=== PATIENT | female | born 1955 | race Caucasian/White ===

== ENCOUNTER 2016-12-10 14:04 | Emergency (ER) | payer OTHER, MEDICARE ==
[~2016-12-10] VITALS: Ht 160 cm; Wt 54.9 kg
[~2016-12-10 14:04] MED LIST: ALPRAZOLAM1 MG PO; ALPRAZOLAM2 M1 PO; ATENOLOL50 MG PO; FUROSEMIDE20 MG PO; LEVAQUIN500 MG PO; LEVOTHYROXINE100 MC1 PO; MORPHINE SULFA100 MG PO; MOTRIN 600 MG600 MG PO; NORVASC 5MG TAB5 MG PO; OMEPRAZOLE40 MG PO; OXYCODONE HCL15 MG PO; PEN-VK500 MG PO; SODIUM CHLORIDE1 GM PO; ZOFRAN 4 MG TABL4 MG PO
--- NOTE | 2016-12-10 14:48 | ED GI/GU/ABDOMINAL COMPLAINT ---
History of Present Illness General Chief Complaint: Abdominal Pain/Flank Pain Stated Complaint: FLANK PAIN Source: patient, family, old records Exam Limitations: no limitations Vital Signs & Intake/Output Vital Signs & Intake/Output Vital Signs Date Time Temp Pulse Resp B/P Pulse O2 O2 Flow FiO2 Ox Delivery Rate 12/10 1634 98.0 88 16 120/72 98 Room Air 12/10 1420 98.7 99 18 113/72 96 Room Air Room Air Allergies Coded Allergies: amoxicillin (From AUGMENTIN) (VOMITING 12/10/16) cephalexin (From KEFLEX) (VOMITING 12/10/16) clavulanic acid (From AUGMENTIN) (VOMITING 12/10/16) poison reina extract (RASH HIVES 12/10/16) Uncoded Allergies: ANTIBIOTICS (PT STATES ONLY CAN TAKE PCN, AMOX AND LEVOFLOXACIN 06/24/15) HAIR DYE (HEAD SWELL, CELLULITIS, EYES SWELLED SHUT 06/24/15) Reconcile Medications Alprazolam (Alprazolam ER) 2 MG TAB.ER.24H 1 TAB PO QPM SLEEP (Reported) Amlodipine (Norvasc 5MG Tab) 5 MG TABLET 1 TAB PO DAILY BP (Reported) Atenolol 50 MG TABLET 1 TAB PO DAILY BP (Reported) Cyclobenzaprine HCl 5 MG TABLET 1 TAB PO TIDPRN PRN PAIN Furosemide 20 MG TABLET 1 TAB PO DAILY DIURETIC (Reported) Levothyroxine Sodium 100 MCG TABLET 1 TAB PO DAILY AC THYROID (Reported) Morphine Sulfate (Morphine Sulfate ER) 100 MG TABLET.ER 1 TAB PO BID PRN PAIN (Reported) Omeprazole 40 MG CAPSULE.DR 1 CAP PO DAILY GI (Reported) Ondansetron HCl 4 MG TABLET 1 TAB PO BID PRN NAUSEA/VOMITING (Reported) OXYCODONE HCL (Oxycodone HCl) 15 MG TABLET 1 TAB PO Q4H PRN PAIN (Reported) Sodium Chloride 1 GRAM TABLET 2 GM PO BID SEIZURES (Reported) Triamcinolone Acetonide 0.1 % OINT...G. 1 MICHOACANO TOP BID DERMATITIS apply to affected area(s) Triage Note: TRIAGE: 61 Y/O FEMALE PRESENTS C/O 8/10 BILATERAL FLANK PAIN X 2 WEEKS, INCREASING YESTERDAY. "I HAVE A RED BURNING RASH ON THE BOTTOM OF MY FEET." REPORTS URINARY BURNING. ABLE TO PROVIDE URINE SPECIMEN IN TRIAGE. Triage Nurses Notes Reviewed? yes ? n Is pt currently ? No Onset: Abrupt Duration: day(s): (1), constant Timing: recent history Quality/Severity: aching, moderate Severity Numbers: 7 Location: left flank, right flank Radiation: no radiation Activities at Onset: cleaning house Modifying Factors: Worsens With: movement. Associated Symptoms: denies HPI: 61-year-old female with history of chronic back pain secondary to scoliosis shoulder pain on multiple narcotic pain medications and pain management presents complaining of bilateral back pain since last night which states came on after she was cleaning the house. Pain is worse with palpation and change in position better at rest. She also reports that her urine was brown in color last night however was clear today. She denies any urinary symptoms. She denies any abdominal pain nausea vomiting diarrhea no cough no shortness of breath. She denies any numbness or tingling in her legs no arm or leg pain. There's been no recent fall or injury or trauma. She's been taking her pain medication as prescribed with minimal improvement in her symptoms. Is also complaining of a burning red rash to the plantar surface of both of her feet since yesterday. According to the patient's the patient was cleaning the carpet with cleaning chemicals and believes that that irritated her feet. She denies any other rash anywhere else. No history of allergic reactions or similar rashes in the past. She denies pruritus and states that it is just burning and has not increased in size since it began yesterday. There are no other modifying factors or associated symptoms otherwise. (EMILY THAPA) Past History Travel History Traveled to [place] past 21 day No Medical History Any Pertinent Medical History? see below for history Neurological: NONE EENT: NONE Cardiovascular: hypertension Respiratory: NONE Gastrointestinal: NONE Hepatic: NONE Renal: NONE Musculoskeletal: chronic back pain, scoliosis Psychiatric: anxiety Blood Disorders: HEP C Surgical History Surgical History: non-contributory Psychosocial History What is your primary language Chinese Tobacco Use: Never used ETOH Use: denies use Illicit Drug Use: denies illicit drug use Family History Hx Contributory? No (EMILY THAPA) Review of Systems Review of Systems Constitutional: Reports: see HPI. All Other Systems: Reviewed and Negative Comments Review of systems: See HPI, All other systems negative. Constitutional, no chills no fever, no malaise no weight loss HEENT: No visual changes no sore throat no congestion Cardiovascular: No chest pain , no palpitation Skin, no rashes, no change in skin Respiratory: No dyspnea no cough no sputum GI: No nausea no vomiting, no diarrhea, : No dysuria No hematuria, no frequency, no discharge Muscle skeletal: No joint pain, no joint swelling, back pain, no neck pain, Neurologic: No numbnessno headache Psych: No stress Heme/endocrine: No bruising no bleeding Immunology: No lymphadenopathy (EMILY THAPA) Physical Exam Physical Exam General Appearance: well developed/nourished, alert, awake, comfortable Gastrointestinal: normal bowel sounds, soft, non-tender Comments: Well-developed well-nourished person in no acute distress HEENT: Normal EENT exam; PERRL, EOMI, HEAD is atraumatic. moist mucous membranes. Neck: Supple, normal range of motion without pain or tenderness Back: Bilateral paralumbar muscle tenderness. Patient no CVA tenderness. Full range of motion Cardiovascular: Regular rate and rhythms no murmurs rubs Respiratory: No respiratory distress. Patient speaking in full complete sentences. Breath sounds clear to auscultation bilaterally: NO W/R/R Abdomen: Soft, nontender nondistended, no appreciable organomegaly. Normal bowel sounds. No rebound/guarding Extremity: No edema, full range of motion of extremities, normal and equal pulses bilaterally, 5 out of 5 strength noted to bilateral upper and lower extremities Neuro: Alert oriented x3, motor sensory normal, cranial nerves II through XII grossly intact. There were no obvious focal neurologic abnormalities. Skin: There is an erythematous rash noted to the plantar surface of bilateral feet, there is no scaling no blisters no bulla noted nontender, skin is warm and dry. Psych: Mood and affect is normal, memory and judgment is normal. Core Measures ACS in differential dx? No Severe Sepsis Present: No Septic Shock Present: No (EMILY THAPA) Progress Differential Diagnosis: bowel obstruction, diverticulitis, inflamm bowel dis, kidney stone, peptic ulcer, PUD/GERD, UTI/pyelo, musculoskeletal strain, malignancy Plan of Care: Orders Procedure Date/time Status URINALYSIS 12/10 141 Complete LACTIC ACID 12/10 141 Complete COMPREHENSIVE METABOLIC PANEL 12/10 1416 Complete CBC WITHOUT DIFFERENTIAL 12/10 1416 Complete Laboratory Tests 12/10/16 1717: Lactic Acid Cancelled 12/10/16 1524: Anion Gap 10, Estimated GFR > 60, BUN/Creatinine Ratio 11.7, Glucose 93, Lactic Acid 1.3, Calcium 8.7, Total Bilirubin 1.0, AST 198 H, ALT 122 H, Alkaline Phosphatase 96, Total Protein 7.3, Albumin 3.6, Globulin 3.7, Albumin/Globulin Ratio 1.0 L, CBC w Diff NO MAN DIFF REQ, RBC 3.19 L, MCV 91.7, MCH 31.4 H, RDW 13.3, MPV 7.9, Gran % 55.9, Lymphocytes % 29.7, Monocytes % 7.3, Eosinophils % 6.6 H, Basophils % 0.5, Absolute Granulocytes 2.9, Absolute Lymphocytes 1.5, Absolute Monocytes 0.4, Absolute Eosinophils 0.3, Absolute Basophils 0, PUBS MCHC 34.3 12/10/16 1423: Urine Color YEL, Urine Clarity CLEAR, Urine pH 6.0, Ur Specific [place] <= 1.005 , Urine Protein NEG, Urine Ketones NEG, Urine Nitrite NEG, Urine Bilirubin NEG, Urine Urobilinogen 0.2, Ur Leukocyte Esterase NEG, Ur Microscopic EXAM NOT REQUIRED, Urine Hemoglobin NEG, Urine Glucose NEG Labs ordered old records reviewed patient medicated Flexeril 10 mg by mouth x- rays ordered Old records reviewed show the patient's H&H and sodium is at her baseline dating back to 2009 I discussed the patient at length her x-ray results she feels improved with the Flexeril. The patient has a known history of hyponatremia dating back ranging anywhere from 126-137. Discussed thoroughly all the rest of her lab results were elevated liver tests. Patient will have close follow up with pain management as her primary care physician if symptoms persist given symptoms improve with Flexeril reproducible with palpation discussed with her that most likely believe symptoms are attributed to her cleaning do not believe she requires any other further imaging at this time which she is in agreement with that will return anytime sooner with any concerns (KRISTY ARRIETA,EMILY) Diagnostic Imaging: Viewed by Me: Radiology Read. Discussed w/RAD: Radiology Read. Radiology Impression: PATIENT: DK DEWITT PRESENT AGE: 61 PATIENT ACCOUNT NO: [id number] : 53 LOCATION: [facility] ORDERING PHYSICIAN: EMILY ARRIETA SERVICE DATE: 12/10/16-1518 EXAM TYPE: RAD - XRY-THORACOLUMBAR SPINE EXAMINATION: XR THORACOLUMBAR SPINE CLINICAL INFORMATION: Back pain. No known injury. COMPARISON: Lumbar spine films dated . TECHNIQUE: Frontal and lateral views of the thoracic and lumbar spine. FINDINGS: Thoracic spine: There is a convex right thoracic scoliosis. No acute fracture or dislocation is seen. Disc space height is relatively well-maintained at all levels. Minimal vertebral spondylosis is seen in the lower thoracic spine at T11-T12 and T9-T10. Paraspinal soft tissues are normal. Calcification of the aortic arch is seen. Included portions of the lungs are unremarkable. Lumbar spine: There is a minimal convex right lumbar scoliosis. As seen previously, there is advanced degenerative disc disease at the lumbosacral junction with near complete loss of the disc space height, vacuum disc phenomenon, vertebral endplate sclerosis and spurring and associated moderate facet arthropathy seen. There is moderate degenerative disc disease seen at all remaining lumbar levels. Osteopenia suggested. Mild superior endplate compression of the L3 vertebral body is seen, unchanged. Aortoiliac vascular calcifications are seen. IMPRESSION : 1. No acute fracture of the thoracic spine or the lumbar spine. 2. Mild thoracolumbar scoliosis with mild spondylosis in lower thoracic spine and moderate to severe degenerative changes in the mid and lower lumbar spine. 3. Osteopenia with mild superior endplate compression of the L3 vertebral body, unchanged. DICTATED BY: LUCITA ONEILL MD DATE/TIME DICTATED:12/10/161605 LIBRARY PAGE:KEYSHAWN DATE/TIME TRANSCRIBED:12/10/161605 CONFIDENTIAL, DO NOT COPY WITHOUT APPROPRIATE AUTHORIZATION. <Electronically signed in Other Vendor System> SIGNED BY: LUCITA ONEILL MD 12/10/16 1618 Initial ED EKG: none (KRISTY ARRIETA,EMILY) Departure Departure Time of Disposition: 1626 Disposition: HOME OR SELF CARE Condition: Stable Clinical Impression Primary Impression: Low back strain Secondary Impressions: Dermatitis, Hyponatremia Referrals: SUZANNA PACKER APRN (PCP/Family) Additional Instructions: TRIAMCINOLONE CREAM DIRECTED. CONTINUE TAKING YOUR PAIN MEDICATION PRESCRIBED. FOLLOW UP WITH YOUR PMD ON MONDAY FOR REPEAT EVALUATION IF SYMPTOMS PERSIST. FLEXERIL DIRECTED. THESE PRESCRIPTIONS WERE SENT TO [facility]. RETURN AT ANYTIME SOONER WITH ANY CONCERNS Departure Forms: Customer Survey General Discharge Information Prescriptions: Current Visit Scripts Cyclobenzaprine HCl 1 TAB PO TIDPRN PRN PAIN #15 TAB Triamcinolone Acetonide 1 MICHOACANO TOP BID #1 TUBE apply to affected area(s) (KRISTY ARRIETA,EMILY) PA/DIRECTOR DRUG SAFETY Co-Sign Statement Statement: ED Attending supervision documentation- [X] I saw and evaluated the patient. I have also reviewed all the pertinent lab results and diagnostic results. I agree with the findings and the plan of care as documented in the PA's/DIRECTOR DRUG SAFETY's documentation. [X] I have reviewed the ED Record and agree with the PA's/DIRECTOR DRUG SAFETY's documentation. [] Additions or exceptions (if any) to the PAs/DIRECTOR DRUG SAFETY's note and plan are summarized below: [] (BELINDA PARISH,NALLELY Newman)
[2016-12-10] MEDS ORDERED: ONDANSETRON HCL4 MG PO (15:02)
[2016-12-10 15:35] LABS: ABSOLUTE BASOPHIL COUNT 0 /CUMM (0.0-0.2); ABSOLUTE EOSINOPHIL COUNT 0.3 /CUMM (0.0-0.7); ABSOLUTE GRANULOCYTE CT 2.9 /CUMM (1.4-6.5); ABSOLUTE LYMPH COUNT 1.5 /CUMM (1.2-3.4); ABSOLUTE MONOCYTE COUNT 0.4 /CUMM (0.10-0.60); BASOPHIL % 0.5 % (0.0-2.0); EOSINOPHIL % 6.6 % (0-5); GRANULOCYTE % 55.9 % (42.2-75.2); HEMATOCRIT 29.3 % (37-47); MEAN CORPUSCULAR HGB 31.4 PG (27.0-31.0); MEAN CORPUSCULAR HGB CONC 34.3 G/DL (33.0-37.0); MEAN CORPUSCULAR VOLUME 91.7 FL (81.0-99.0); MEAN PLATELET VOLUME 7.9 FL (7.4-10.4); PLATELET COUNT 123 /CUMM (130-400); RBC DISTRIBUTION WIDTH 13.3 % (11.5-14.5); RED BLOOD CELL CT 3.19 /CUMM (4.20-5.40); WHITE BLOOD CELL COUNT 5.2 /CUMM (4.8-10.8)
--- NOTE | 2016-12-10 16:18 | RADIOLOGY REPORT ---
EXAMINATION: XR THORACOLUMBAR SPINE CLINICAL INFORMATION: Back pain. No known injury. COMPARISON: Lumbar spine films dated 10/20/2016. TECHNIQUE: Frontal and lateral views of the thoracic and lumbar spine. FINDINGS: Thoracic spine: There is a convex right thoracic scoliosis. No acute fracture or dislocation is seen. Disc space height is relatively well-maintained at all levels. Minimal vertebral spondylosis is seen in the lower thoracic spine at T11-T12 and T9-T10. Paraspinal soft tissues are normal. Calcification of the aortic arch is seen. Included portions of the lungs are unremarkable. Lumbar spine: There is a minimal convex right lumbar scoliosis. As seen previously, there is advanced degenerative disc disease at the lumbosacral junction with near complete loss of the disc space height, vacuum disc phenomenon, vertebral endplate sclerosis and spurring and associated moderate facet arthropathy seen. There is moderate degenerative disc disease seen at all remaining lumbar levels. Osteopenia suggested. Mild superior endplate compression of the L3 vertebral body is seen, unchanged. Aortoiliac vascular calcifications are seen. IMPRESSION: 1. No acute fracture of the thoracic spine or the lumbar spine. 2. Mild thoracolumbar scoliosis with mild spondylosis in lower thoracic spine and moderate to severe degenerative changes in the mid and lower lumbar spine. 3. Osteopenia with mild superior endplate compression of the L3 vertebral body, unchanged.
[2016-12-10] MEDS ORDERED: CYCLOBENZAPRINE5 M2 PO (16:29)
[2016-12-10] MEDS ORDERED: TRIAMCINOLONE A15 G3 TOP (16:29)
[2016-12-10 16:34] VITALS: BP 120/72
== END 2016-12-10 16:35 ==
LOC: ERH 14:04
PROVIDERS: Emergency Medicine
DX: S39.012A Strain of muscle, fascia and tendon of lower back, initial encounter (principal); L30.9 Dermatitis, unspecified; E87.1 Hypo-osmolality and hyponatremia; X58.XXXA Exposure to other specified factors, initial encounter
CPT/HCPCS: 72080; 81003

== ENCOUNTER 2018-05-23 20:36 | Emergency (ER) | payer OTHER, MEDICARE ==
[~2018-05-23] VITALS: Ht 160 cm; Wt 50.3 kg
[~2018-05-23 20:36] MED LIST changes: +ALPRAZOLAM ER2 MG PO; +ALPRAZOLAM1 M2 PO; +ATENOLOL25 M1 PO; +ATORVASTATIN CA10 M1 PO; +CYCLOBENZAPRINE5 M2 PO; +FUROSEMIDE20 M1 PO; +LEVOTHYROXINE112 MCG PO; +MS CONTIN100 MG PO; +OMEPRAZOLE40 M1 PO; +ONDANSETRON HCL4 MG PO; +OXYCODONE HCL15 M1 PO; +PROAIR HFA8.5 GM INH; +SODIUM CHLORIDE1 G2 PO; +TRIAMCINOLONE A15 G3 TOP
--- NOTE | 2018-05-23 20:55 | ED AMS/SEIZURE/WEAK/DIZZY ---
History of Present Illness General Chief Complaint: General Adult Stated Complaint: WEAKNESS,DIZZINESS,"STIFF KNEES/LEGS,BROWN URINE" Source: patient, family Exam Limitations: no limitations Vital Signs & Intake/Output Vital Signs & Intake/Output Vital Signs Date Time Temp Pulse Resp B/P B/P Pulse O2 O2 Flow FiO2 Mean Ox Delivery Rate 05/24 0154 98.3 85 18 144/93 98 Room Air 05/23 2235 98.2 80 18 129/76 96 Room Air 05/23 2130 95 Room Air 05/23 2039 99.1 79 20 109/76 95 Room Air ED Intake and Output 05/24 0000 05/23 1200 Intake Total 1000 Output Total Balance 1000 Intake, IV 1000 Intake, Oral 0 Patient 111 lb Weight Weight Reported by Patient Measurement Method Allergies Coded Allergies: amoxicillin (From AUGMENTIN) (VOMITING 05/23/18) cephalexin (From KEFLEX) (VOMITING 05/23/18) clavulanic acid (From AUGMENTIN) (VOMITING 05/23/18) poison reina extract (RASH HIVES 05/23/18) Uncoded Allergies: ANTIBIOTICS (PT STATES ONLY CAN TAKE PCN, AMOX AND LEVOFLOXACIN 06/24/15) HAIR DYE (HEAD SWELL, CELLULITIS, EYES SWELLED SHUT 06/24/15) Reconcile Medications Albuterol Sulfate (Proair Hfa) 90 MCG HFA.AER.AD 2 PUF INH Q4-6 PRN PRN ASTHMA (Reported) Alprazolam 1 MG TABLET 1 TAB PO BIDP PRN ANXIETY (Reported) Alprazolam (Alprazolam ER) 2 MG TAB.ER.24H 1 TAB PO QHS SLEEP (Reported) Atenolol 25 MG TABLET 1 TAB PO DAILY BP (Reported) Atorvastatin Calcium 10 MG TABLET 1 TAB PO DAILY CHOLESTEROL (Reported) Furosemide 20 MG TABLET 1 TAB PO DAILY DIURETIC (Reported) Levothyroxine Sodium 112 MCG TABLET 1 TAB PO DAILY AC THYROID (Reported) Morphine Sulfate (Ms Contin) 100 MG TABLET.ER 1 TAB PO BID PRN PAIN (Reported ) Omeprazole 40 MG CAPSULE.DR 1 CAP PO DAILY BARRETTS (Reported) Oxycodone HCl 15 MG TABLET 1-2 TAB PO Q4H PRN PAIN (Reported) Sodium Chloride 1 GRAM TABLET 2 TAB PO BID SUPPLEMENT (Reported) Triage Note: TRIAGE: PT TO ER W/ C/C GENERAL FATIGUE, STIFFNESS IN HER LEGS, INTERMITTENT DISORIENTATION/DIZZINESS AND DARK COLORED URINE. INCREASED WATER INTAKE R/T DARK COLORED URINE AND STATES URINE COLOR IMPROVED. DARK COLORED URINE STARTED TODAY AND OTHER S/S STARTED "ABOUT 3 DAYS TO A WEEK AGO". HAS CHRONIC PAINS X YEARS FOR WHICH SHE SEES PAIN MANAGEMENT, DENIES ANY NEW PAINS. ADMITS TO DRINKING A COUPLE OF BEERS TODAY. Triage Nurses Notes Reviewed? yes Onset: Gradual Duration: day(s):, waxing and waning Timing: recent history Injury Environment: home Severity: mild Modifying Factors: Improves With: rest. Associated Symptoms: weakness HPI: 62 yo woman h/o chronic pain, arthritis, presents feeling weak, dizzy, with dark urine. Per , "She has been on the sofa all day... but today seemed to get worse." She notes that she had a few beers today. She notes that she went outside briefly in the hot weather. She feels like her tongue is dry. She notes that she has been eating normally, but maybe not drinking as much. She notes mild dysuria. She notes no fever, chills, chest pain, dyspnea. Past History Travel History Traveled to [place] past 21 day No Medical History Any Pertinent Medical History? 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 No Review of Systems Review of Systems Constitutional: Reports: no symptoms. EENTM: Reports: no symptoms. Respiratory: Reports: no symptoms. Cardiovascular: Reports: no symptoms. GI: Reports: no symptoms. Genitourinary: Reports: no symptoms. Musculoskeletal: Reports: no symptoms. Skin: Reports: no symptoms. Neurological/Psychological: Reports: no symptoms. Hematologic/Endocrine: Reports: no symptoms. Immunologic/Allergic: Reports: no symptoms. All Other Systems: Reviewed and Negative Physical Exam Physical Exam General Appearance: well developed/nourished, no apparent distress Head: atraumatic, normal appearance Eyes: Bilateral: normal appearance. Ears, Nose, Throat: dry mucosa Neck: normal inspection, supple, full range of motion Respiratory: normal breath sounds, chest non-tender, no respiratory distress, quiet respiration, lungs clear Cardiovascular: regular rate/rhythm Gastrointestinal: normal bowel sounds, soft, non-tender, no organomegaly Back: normal inspection, normal range of motion Extremities: normal range of motion, evidence of injury Neurologic/Psych: no motor/sensory deficits, awake, alert, oriented x 3 Skin: intact, normal color, warm/dry Core Measures ACS in differential dx? No CVA/TIA Diagnosis No Sepsis Present: No Sepsis Focused Exam Completed? No Progress Differential Diagnosis: dehydration vs other. Plan of Care: Orders Procedure Date/time Status Add-on Test (ER Only) 05/24 105 Active HEPATIC FUNCTION PANEL 05/24 43 Complete BASIC METABOLIC PANEL 05/24 40 Complete ETHANOL 05/23 2115 Complete URINALYSIS 05/23 2055 Complete TROPONIN LEVEL 05/23 2055 Complete LIPASE 05/23 2055 Complete HEPATIC FUNCTION PANEL 05/23 2055 Complete CBC WITHOUT DIFFERENTIAL 05/23 2055 Complete BASIC METABOLIC PANEL 05/23 2055 Complete AMYLASE 05/23 2055 Complete EKG 05/23 2055 Active Laboratory Tests 05/24/1842: Anion Gap 12, Estimated GFR > 60, BUN/Creatinine Ratio 10.0, Glucose 122 H, Calcium 8.3 L, Total Bilirubin 2.9 H, Direct Bilirubin 1.2 H, AST 673 H, ALT 301 H, Alkaline Phosphatase 125, Total Protein 7.0, Albumin 3.6 05/23/182220: Urine Color YEL, Urine Clarity CLEAR, Urine pH 6.5, Ur Specific [place] <= 1.005 , Urine Protein NEG, Urine Ketones NEG, Urine Nitrite NEG, Urine Bilirubin NEG, Urine Urobilinogen 0.2, Ur Leukocyte Esterase NEG, Ur Microscopic EXAM NOT REQUIRED, Urine Hemoglobin NEG, Urine Glucose NEG 05/23/182114: Anion Gap 11, Estimated GFR > 60, BUN/Creatinine Ratio 14.0, Glucose 119 H, Calcium 8.5, Total Bilirubin 2.8 H, Direct Bilirubin 1.2 H, AST 678 H, ALT 310 H, Alkaline Phosphatase 111, Troponin I < 0.01, Total Protein 7.1, Albumin 3.7, Amylase 57, Lipase 395 H, CBC w Diff NO MAN DIFF REQ, RBC 3.42 L, MCV 96.0, MCH 33.8 H, MCHC 35.2, RDW 11.9, MPV 9.0, Gran % 72.4, Lymphocytes % 17.9 L, Monocytes % 7.4, Eosinophils % 1.9, Basophils % 0.4, Absolute Granulocytes 5.2, Absolute Lymphocytes 1.3, Absolute Monocytes 0.5, Absolute Eosinophils 0.1, Absolute Basophils 0, Serum Alcohol 15.0 05/23/18 2103: Serum Alcohol Cancelled Diagnostic Imaging: Viewed by Me: CT Scan. Discussed w/RAD: CT Scan. Radiology Impression: PATIENT: DK DEWITT PRESENT AGE: 62 PATIENT ACCOUNT NO: [id number] : 53 LOCATION: [facility] ORDERING PHYSICIAN: Joon Linder MD SERVICE DATE: 05/24/18 EXAM TYPE: CAT - CT ABD & PELVIS W IV CONTRAST EXAMINATION: CT ABDOMEN AND PELVIS WITH CONTRAST CLINICAL INFORMATION: Elevated LFTs. Concern for acute cholecystitis COMPARISON: None TECHNIQUE: Multidetector volumetric imaging was performed of the abdomen and pelvis following IV administration of 95 mL of Optiray 320 intravenous contrast. Sagittal and coronal reformatted images were obtained on the technologist's workstation. DLP: 240.11 mGy-cm FINDINGS: LUNG BASES: There are patchy groundglass opacities in the dependent right lung in the middle lobe and the right lower lobe. Nonspecific. Could be inflammatory or infectious in etiology but there is no dense consolidation. There is no pleural effusion. LIVER, GALLBLADDER, AND BILIARY TREE: There is diffuse low attenuation of liver parenchyma due to fatty change. The gallbladder is unremarkable with no evidence of radiopaque gallstones, gallbladder wall thickening, or obvious pericholecystic inflammatory changes. PANCREAS: Unremarkable. SPLEEN: Unremarkable. ADRENAL GLANDS: Unremarkable. KIDNEYS AND URETERS: The kidneys are normal in size, shape, and attenuation. No hydronephrosis, hydroureter, or calculi seen. No perinephric stranding. There is a 1 cm cortical cyst at the lower pole of the left kidney. BLADDER: Unremarkable. GASTROINTESTINAL TRACT: No acute change of the bowel. No bowel obstruction. No bowel wall thickening or edema. Large volume of stool throughout the colon. The small bowel loops are unremarkable. The appendix is normal. There is no inflammation of the mesentery. ABDOMINAL WALL: No significant hernia is appreciated. LYMPH NODES: Normal. VASCULAR: There is diffuse atherosclerotic vascular wall calcifications of aorta and iliac arteries without aneurysm. There is prominent veins along the left pelvic sidewall and prominent left gonadal vein without thrombosis. PELVIC VISCERA: The uterus is anteverted. No adnexal abnormality. 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 Multilevel disc height narrowing, endplate spurring and facet joint arthrosis of the spine. IMPRESSION: 1. No acute abnormality of the abdomen or pelvis. There is mild fatty change of liver. The gallbladder is unremarkable. No bile duct dilatation. 2. Patchy scattered groundglass opacities at the right lung base. Nonspecific but could be due to inflammation or infection. No focal consolidation. No pleural effusion. DICTATED BY: Alvarez Martinez MD DATE/TIME DICTATED:05/24/18131 BIBLICAL LANGUAGES PROFESSOR:KEYSHAWN DATE/TIME TRANSCRIBED:05/24/18131 CONFIDENTIAL, DO NOT COPY WITHOUT APPROPRIATE AUTHORIZATION. <Electronically signed in Other Vendor System> SIGNED BY: Alvarez Martinez MD 05/24/18139 Initial ED EKG: left axis deviation, nsr. Departure Departure Disposition: HOME OR SELF CARE Condition: Stable Clinical Impression Primary Impression: Dehydration Secondary Impressions: Elevated LFTs, Hyponatremia Referrals: Lisa De León APRN (PCP/Family) Departure Forms: Customer Survey General Discharge Information Comments follow up blood work reveals 133 sodium... .pt feeling better.... ct scan reveals fatty liver without cholecystitis... of note, pt has no ruq tenderness. no baig's sign.... pt safe for discharge with close follow up advised.
[2018-05-23 21:32] LABS: ABSOLUTE BASOPHIL COUNT 0 /CUMM (0.0-0.2); ABSOLUTE EOSINOPHIL COUNT 0.1 /CUMM (0.0-0.7); ABSOLUTE GRANULOCYTE CT 5.2 /CUMM (1.4-6.5); ABSOLUTE LYMPH COUNT 1.3 /CUMM (1.2-3.4); ABSOLUTE MONOCYTE COUNT 0.5 /CUMM (0.10-0.60); BASOPHIL % 0.4 % (0.0-2.0); EOSINOPHIL % 1.9 % (0-5); GRANULOCYTE % 72.4 % (42.2-75.2); HEMATOCRIT 32.8 % (37-47); MEAN CORPUSCULAR HGB 33.8 PG (27.0-31.0); MEAN CORPUSCULAR HGB CONC 35.2 G/DL (33.0-37.0); PLATELET COUNT 123 /CUMM (130-400); RBC DISTRIBUTION WIDTH 11.9 % (11.5-14.5); RED BLOOD CELL CT 3.42 /CUMM (4.20-5.40); WHITE BLOOD CELL COUNT 7.1 /CUMM (4.8-10.8)
--- NOTE | 2018-05-24 01:40 | CT SCAN REPORT ---
EXAMINATION: CT ABDOMEN AND PELVIS WITH CONTRAST CLINICAL INFORMATION: Elevated LFTs. Concern for acute cholecystitis COMPARISON: None TECHNIQUE: Multidetector volumetric imaging was performed of the abdomen and pelvis following IV administration of 95 mL of Optiray 320 intravenous contrast. Sagittal and coronal reformatted images were obtained on the technologist's workstation. DLP: 240.11 mGy-cm FINDINGS: LUNG BASES: There are patchy groundglass opacities in the dependent right lung in the middle lobe and the right lower lobe. Nonspecific. Could be inflammatory or infectious in etiology but there is no dense consolidation. There is no pleural effusion. LIVER, GALLBLADDER, AND BILIARY TREE: There is diffuse low attenuation of liver parenchyma due to fatty change. The gallbladder is unremarkable with no evidence of radiopaque gallstones, gallbladder wall thickening, or obvious pericholecystic inflammatory changes. PANCREAS: Unremarkable. SPLEEN: Unremarkable. ADRENAL GLANDS: Unremarkable. KIDNEYS AND URETERS: The kidneys are normal in size, shape, and attenuation. No hydronephrosis, hydroureter, or calculi seen. No perinephric stranding. There is a 1 cm cortical cyst at the lower pole of the left kidney. BLADDER: Unremarkable. GASTROINTESTINAL TRACT: No acute change of the bowel. No bowel obstruction. No bowel wall thickening or edema. Large volume of stool throughout the colon. The small bowel loops are unremarkable. The appendix is normal. There is no inflammation of the mesentery. ABDOMINAL WALL: No significant hernia is appreciated. LYMPH NODES: Normal. VASCULAR: There is diffuse atherosclerotic vascular wall calcifications of aorta and iliac arteries without aneurysm. There is prominent veins along the left pelvic sidewall and prominent left gonadal vein without thrombosis. PELVIC VISCERA: The uterus is anteverted. No adnexal abnormality. 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 Multilevel disc height narrowing, endplate spurring and facet joint arthrosis of the spine. IMPRESSION: 1. No acute abnormality of the abdomen or pelvis. There is mild fatty change of liver. The gallbladder is unremarkable. No bile duct dilatation. 2. Patchy scattered groundglass opacities at the right lung base. Nonspecific but could be due to inflammation or infection. No focal consolidation. No pleural effusion.
[2018-05-24 01:54] VITALS: BP 144/93
== END 2018-05-24 02:31 ==
LOC: ERH 20:36
PROVIDERS: Pediatrics
DX: E86.0 Dehydration (principal); E87.1 Hypo-osmolality and hyponatremia; R79.89 Other specified abnormal findings of blood chemistry
CPT/HCPCS: 74177; 81003; 93005; 93010; 96360; G0480